=== PATIENT | female | born 1990 | race Caucasian/White ===

== ENCOUNTER 2022-04-04 01:15 | Emergency (ER) | payer BC ==
[~2022-04-04] VITALS: Ht 160 cm; Wt 72.0 kg
[2022-04-04 03:47] LABS: Basophils # (auto) 0 10 ^3/uL (0-0.2); Basophils % (auto) 0.3 % (0.0-2.0); Eosinophils # (auto) 0 10 ^3/uL (0-0.8); Eosinophils % (auto) 0.2 % (0.0-7.0); Lymphocytes # (auto) 1.7 10 ^3/uL (0.4-5.4); Lymphocytes % (auto) 16.4 % (10.0-50.0); Mean Corpuscular Hgb Conc. 33.2 g/dL (32.0-36.0); Mean Corpuscular Volume 90.4 fL (80.0-100.0); Monocytes # (auto) 0.5 10 ^3/uL (0-1.3); Monocytes % (auto) 5.2 % (0.0-12.0); Neutrophils # (auto) 8.1 10 ^3/uL (1.6-8.6); Neutrophils % (auto) 77.9 % (37.0-80.0); Nucleated Red Blood Cells % 0.1 %; Red Blood Cells 4.65 10^6/uL (4.0-5.20); Red Cell Distribution Width 12.8 % (11.8-14.3); White Blood Cell 10.4 10^3/uL (4.4-10.8)
[2022-04-04 04:17] LABS: BUN/Creatinine Ratio 18.5; Bilirubin, Total 0.8 mg/dL (0.2-1.0); Calcium 8.4 mg/dL (8.5-10.1); Total Protein 7.2 g/dL (6.4-8.2)
[2022-04-04 04:38] LABS: Urine Bacteria NONE SEEN /hpf (None Seen); Urine Blood Negative /uL (Negative); Urine Mucus FEW (None Seen); Urine Specific Gravity 1.027 (1.001-1.035); Urine WBC 4 /hpf (0 - 5)
[2022-04-04] MEDS ORDERED: IBU600T PO (09:02)
[2022-04-04] MEDS ORDERED: ASPirin 325 MG TAB PO ONE (09:15)
[2022-04-04 09:16] VITALS: BP 133/87
== END 2022-04-04 09:21 | disposition home or self-care (01) ==
LOC: ER 01:15
DX: R07.89 Other chest pain (principal)
CPT/HCPCS: 36415; 71045; 80053; 81001; 83880; 84484; 85025; 93005